=== PATIENT | female | born 1945 | race Caucasian/White ===

== ENCOUNTER → 2016-12-19 | Outpatient (CLI) | payer MEDICARE, BC | END | disposition home or self-care (01) | LOC: LABWHC1 09:54 | PROVIDERS: ATTEND Internal Medicine Endocrinology, Diabetes & Metabolism | DX: E03.8 Other specified hypothyroidism (principal) | CPT/HCPCS: 36415; 84443 ==

== ENCOUNTER → 2017-07-19 | Outpatient (CLI) | payer MEDICARE, BC ==
--- NOTE | 2017-07-19 15:42 | US ---
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 GLAND SIZE: Right Lobe: surgically removed Left Lobe: 3.4 x 1.1 x 1.4 cm Overall Parenchyma: heterogeneous Isthmus Thickness: 0.4 cm NODULES RIGHT: no discreet thyroid tissue is identified LEFT: # of nodules measured on left: 1 1. 0.6 X 0.6 x 0.4 cm isoechoic solid nodule at the lower pole with well-defined margins. This nodu le is wider than tall and shows no intranodular vascularity. Prior size: no prior here ISTHMUS: # of nodules measured in the isthmus: 0 Bilateral neck scanned, no evidence of lymphadenopathy. IMPRESSION: 1. Subcentimeter nodule left lobe thyroid 2. No recurrent masses right thyroid bed.
== END | disposition home or self-care (01) ==
LOC: RADUSWWP 14:59
PROVIDERS: ATTEND Internal Medicine Endocrinology, Diabetes & Metabolism
DX: E04.1 Nontoxic single thyroid nodule (principal); E03.8 Other specified hypothyroidism
CPT/HCPCS: 36415; 76536; 84443

== ENCOUNTER → 2017-11-19 | Outpatient (CLI) | payer MEDICARE, BC ==
--- NOTE | 2017-11-20 08:57 | MM ---
Reason for exam: screening (asymptomatic). Last mammogram was performed 1 year and 1 month ago. History: Patient is postmenopausal. Physical Findings: A clinical breast exam by your physician is recommended on an annual basis and results should be correlated with mammographic findings. MG 3D Screening Mammo W/Cad Bilateral CC and MLO view(s) were taken. Prior study comparison: October 12, 2016, bilateral MG 3d screening mammo w/cad. October 25, 2015, mammogram, performed at [facility]. The breast tissue is heterogeneously dense. This may lower the sensitivity of mammography. Finding: There are typically benign calcifications in both breasts. No significant changes in finding since October 12, 2016 and October 25, 2015. ASSESSMENT: Benign, BI-RAD 2 RECOMMENDATION: Routine screening mammogram of both breasts in 1 year.
== END | disposition home or self-care (01) ==
LOC: RADMAMWWP 13:25
PROVIDERS: ATTEND Internal Medicine Geriatric Medicine
DX: Z12.31 Encounter for screening mammogram for malignant neoplasm of breast (principal)
CPT/HCPCS: 77063; 77067

== ENCOUNTER → 2018-04-09 | Outpatient (CLI) | payer MEDICARE, BC | END | disposition home or self-care (01) | LOC: LABWHC1 12:02 | PROVIDERS: ATTEND Internal Medicine Endocrinology, Diabetes & Metabolism | DX: E03.8 Other specified hypothyroidism (principal) | CPT/HCPCS: 36415; 84443 ==

== ENCOUNTER → 2018-11-18 | Outpatient (CLI) | payer MEDICARE, BC ==
[2018-11-18 12:34] LABS: T4, Free (Free Thyroxine) 1.19 ng/dL (0.78-2.19)
--- NOTE | 2018-11-18 12:57 | US ---
EXAMINATION TYPE: US thyroid st tissue head/neck DATE OF EXAM: 11/18/2018 COMPARISON: US July 19, 2017. CLINICAL HISTORY: E04.2 GOITER. F/U previous GLAND SIZE: RT LOBE: Surgically absent Left Lobe: 3.3 x 1.2 x 1.0 cm Overall Parenchyma: heterogeneous Isthmus Thickness: 0.3 cm NODULES LEFT: # of nodules measured on left: 1 1. 0.6 X 0.6 x 0.5 cm isoechoic solid nodule at the lower pole with well-defined margins; This nod ule is wider than tall and shows intranodular vascularity. Prior size: 0.6 x 0.6 x 0.4 cm Bilateral neck scanned, no evidence of lymphadenopathy. Stable nodule left lobe/ Right thyroid bed ap peared wnl. No suspicious recurrent tissue right thyroid bed is present. Heterogeneous small sized left thyroid Is redemonstrated with stable 6 mm isoechoic solid nodule. IMPRESSION: Overall stable findings, no suspicious recurrent tissue or new thyroid nodularity.
== END | disposition home or self-care (01) ==
LOC: RADUSWWP 10:02
PROVIDERS: ATTEND Internal Medicine Endocrinology, Diabetes & Metabolism
DX: E04.2 Nontoxic multinodular goiter (principal)
CPT/HCPCS: 36415; 76536; 84439; 84443

== ENCOUNTER → 2018-11-26 | Outpatient (CLI) | payer MEDICARE, BC ==
--- NOTE | 2018-11-28 09:07 | MM ---
Reason for exam: screening (asymptomatic). Last mammogram was performed 1 year ago. History: Patient is postmenopausal. Physical Findings: A clinical breast exam by your physician is recommended on an annual basis and results should be correlated with mammographic findings. MG 3D Screening Mammo W/Cad Bilateral CC and MLO view(s) were taken. Prior study comparison: November 19, 2017, bilateral MG 3d screening mammo w/cad. October 12, 2016, bilateral MG 3d screening mammo w/cad. The breast tissue is heterogeneously dense. This may lower the sensitivity of mammography. No significant changes when compared with prior studies. ASSESSMENT: Benign, BI-RAD 2 RECOMMENDATION: Routine screening mammogram of both breasts in 1 year.
== END | disposition home or self-care (01) ==
LOC: RADMAMWWP 07:07
PROVIDERS: ATTEND Internal Medicine Geriatric Medicine
DX: Z12.31 Encounter for screening mammogram for malignant neoplasm of breast (principal)
CPT/HCPCS: 77063; 77067

== ENCOUNTER → 2019-10-06 | Outpatient (CLI) | payer MEDICARE, BC ==
[2019-10-06 14:35] LABS: Calcium 9.6 mg/dL (8.4-10.2); Potassium 4.3 mmol/L (3.5-5.1)
--- NOTE | 2019-10-07 16:20 | CT ---
EXAMINATION TYPE: CT urogram wo/w con DATE OF EXAM: 10/06/2019 HISTORY: Frequent urination and incontinence. CT DLP: 2818mGycm Automated Exposure Control for Dose Reduction was Utilized. CONTRAST: CT scan of the abdomen and pelvis is performed without and with IV Contrast, patient injected with 80 ml mL of Isovue 300. COMPARISON: None. FINDINGS: LUNG BASES: Benign granulomatous changes of the lungs and rhona. Subsegmental atelectasis and cardiome oneil are also seen. LIVER/GB: Mild degree hepatic steatosis limiting evaluation for hepatic masses. No discrete hepatic m asses seen nor intrahepatic biliary ductal dilatation. No cholelithiasis PANCREAS: No significant abnormality is seen. SPLEEN: No significant abnormality is seen. ADRENALS: There is a solid 7 mm right adrenal gland nodule that does not demonstrate characteristics of a benign adenoma. Precontrast Hounsfield unit 38 and relative washout of 25% as well as absolute w ashout of 48%. Left adrenal gland is unremarkable. KIDNEYS: Unenhanced images demonstrate no evidence of nephrolithiasis. There are bilateral sub-4 mm c ortical renal lesions that are too small to accurately characterize. No additional suspicious mass. N o hydronephrosis of either kidney. No uroepithelial thickening. Patchy opacification of the right ure ter. Opacification is improved on coronal delayed images. Left ureter is well opacified with ureteral jet seen. No discrete urinary bladder wall thickening is identified. BOWEL: No dilated large or small bowel. LYMPH NODES: No greater than 1cm abdominal or pelvic lymph nodes are appreciated. OSSEOUS STRUCTURES: Moderate arthropathy of the right femoral acetabular joint and mild of the left. Diffuse osseous demineralization is seen as well as moderate degenerative changes of the spine and le voscoliosis of the lumbar spine. OTHER: There is tortuosity of the abdominal aorta secondary to scoliosis. Mild atheromatous changes o f the abdominal aorta and its branches. IMPRESSION: 1. Indeterminant solid 7 mm right adrenal gland nodule that does not fit criteria for a benign adenom a. Given the small size percutaneous biopsy may be difficult. Considerations could be given to PET CT or short-term follow-up CT in 6 months. 2. No suspicious solid renal mass. There are bilateral sub-4 mm too small to accurately characterize lesions that could also be assessed at 6 months time. These are likely cysts.
== END | disposition home or self-care (01) ==
LOC: RADCTMAIN 13:48
PROVIDERS: ATTEND Urology
DX: E27.8 Other specified disorders of adrenal gland (principal)
CPT/HCPCS: 80048; 74178; 36415; 74400; Q9967

== ENCOUNTER → 2019-11-30 | Outpatient (CLI) | payer MEDICARE ==
--- NOTE | 2019-12-01 11:05 | MM ---
Reason for exam: screening (asymptomatic). Last mammogram was performed 1 year ago. History: Patient is postmenopausal and has history of other cancer at age 71. Benign excisional biopsy of the left breast, 1999. Physical Findings: A clinical breast exam by your physician is recommended on an annual basis and results should be correlated with mammographic findings. MG 3D Screening Mammo W/Cad Bilateral CC and MLO view(s) were taken. Prior study comparison: November 26, 2018, bilateral MG 3d screening mammo w/cad. November 19, 2017, bilateral MG 3d screening mammo w/cad. The breast tissue is heterogeneously dense. This may lower the sensitivity of mammography. There is no discrete abnormality. ASSESSMENT: Benign, BI-RAD 2 RECOMMENDATION: Routine screening mammogram of both breasts in 1 year.
== END | disposition home or self-care (01) ==
LOC: RADMAMWWP 09:54
PROVIDERS: ATTEND Internal Medicine Geriatric Medicine
DX: Z12.31 Encounter for screening mammogram for malignant neoplasm of breast (principal)
CPT/HCPCS: 77063; 77067

== ENCOUNTER → 2021-03-29 | Outpatient (CLI) | payer MEDICARE ==
--- NOTE | 2021-03-31 15:07 | MM ---
Reason for exam: screening (asymptomatic). Last mammogram was performed 1 year and 4 months ago. History: Patient is postmenopausal and has history of other cancer at age 71. Benign excisional biopsy of the left breast, 1999. Physical Findings: A clinical breast exam by your physician is recommended on an annual basis and results should be correlated with mammographic findings. MG 3D Screening Mammo W/Cad Bilateral CC and MLO view(s) were taken. Prior study comparison: November 30, 2019, bilateral MG 3d screening mammo w/cad. November 26, 2018, bilateral MG 3d screening mammo w/cad. The breast tissue is heterogeneously dense. This may lower the sensitivity of mammography. ASSESSMENT: Benign, BI-RAD 2 RECOMMENDATION: Routine screening mammogram of both breasts in 1 year.
== END | disposition home or self-care (01) ==
LOC: RADMAMWWP 14:32
PROVIDERS: ATTEND Internal Medicine Geriatric Medicine
DX: Z12.31 Encounter for screening mammogram for malignant neoplasm of breast (principal); Z98.890 Other specified postprocedural states
CPT/HCPCS: 77063; 77067

== ENCOUNTER → 2021-06-05 | Outpatient (CLI) | payer MEDICARE ==
--- NOTE | 2021-06-05 14:05 | BD ---
EXAMINATION TYPE: Axial Bone Density DATE OF EXAM: 06/05/2021 COMPARISON: 10/12/2016 CLINICAL HISTORY: Height: 65 IN Weight: 179 LBS RISK FACTORS HISTORY OF: Active: YES Diet low in dairy products/other sources of calcium: YES Postmenopausal woman: AGE 56 Take estrogen and/or progesterone medications: NOT NOW How long: TOOK FOR 1 YEAR MEDICATIONS: Thyroid Medications: YES Which medication: Levothyroxine How Lon + YEARS Additional Medications: VIT D, LEVOTHYROXINE, HIGH BLOOD PRESSURE MEDS, LEXAPRO, ZOCOR, Additional History: CERVICAL CANCER WITH RADIATION EXAM MEASUREMENTS: Bone mineral densitometry was performed using the [facility]. Bone mineral density as measured about the Lumbar spine is: ----- L1-L4(G/cm2): 1.145 T Score Values are as follows: ----- L2: -0.2 ----- L3: 0.6 ----- L4: -0.7 ----- L1-L4: -0.3 Bone mineral density has: Increased 0.3% since study of: 10/12/2016 Bone mineral density about the R hip (g/cm2): 1.030 Bone mineral density about the L hip (g/cm2): 1.010 T Score values are as follows: -----R Neck: -0.1 -----L Neck: -0.2 -----R Total: 0.5 -----L Total: 0.3 Bone mineral density has: Decreased -1.7% since study of: 10/12/2016 IMPRESSION: Normal (Values between +1 and -1 indicate normal bone mass). Consider repeating this study in 5 year s or sooner if there is some new clinical indication. NOTE: T-SCORE=SD OF THE YOUNG ADULT MEAN.
== END | disposition home or self-care (01) ==
LOC: RADBDWWP 08:08
PROVIDERS: ATTEND Internal Medicine Geriatric Medicine
DX: M81.0 Age-related osteoporosis without current pathological fracture (principal)
CPT/HCPCS: 77080

== ENCOUNTER → 2022-04-12 | Outpatient (CLI) | payer MEDICARE ==
--- NOTE | 2022-04-14 12:19 | MM ---
Reason for Exam: Screening (asymptomatic). Last screening mammogram was performed 12 month(s) ago. Patient History: Menarche at age 14. First Full-Term at age 23. Left ovary removed at age 71. Right ovary removed at age 71. Hysterectomy at age 71. Postmenopausal. Other cancer, age 71. 2000, Benign Excisional Biopsy on the left side. Risk Values: Sydney 5 year model risk: 2.1%. NCI Lifetime model risk: 3.7%. Prior Study Comparison: 11/26/2018 Bilateral Screening Mammogram, [facility]. 11/30/2019 Bilateral Screening Mammogram, [facility]. 03/29/2021 Bilateral Screening Mammogram, [facility]. Tissue Density: The breast tissue is heterogeneously dense. This may lower the sensitivity of mammography. Findings: Analyzed By CAD. There is no suspicious group of microcalcifications or new suspicious mass in either breast. Overall Assessment: Negative, BI-RAD 1 Management: Screening Mammogram of both breasts in 1 year. 1. Patient should continue monthly self breast exams. 2. A clinical breast exam by your physician is recommended on an annual basis and results should be correlated with mammographic findings. A negative mammogram should not preclude additional follow-up of suspicious palpable abnormalities. Electronically signed and approved by: Conrad Victoria M.D. Radiologist
== END | disposition home or self-care (01) ==
LOC: RADMAMWWP 13:37
PROVIDERS: ATTEND Internal Medicine Geriatric Medicine
DX: Z12.31 Encounter for screening mammogram for malignant neoplasm of breast (principal); R92.8 Other abnormal and inconclusive findings on diagnostic imaging of breast
CPT/HCPCS: 77063; 77067

== ENCOUNTER → 2022-07-18 | Outpatient (CLI) | payer MEDICARE ==
--- NOTE | 2022-07-19 08:02 | US ---
EXAMINATION TYPE: US carotid duplex BILAT DATE OF EXAM: 07/18/2022 COMPARISON: NONE CLINICAL HISTORY: 76-year-old female [id number] SYNCOPE AND COLLAPSE. Syncope and collapse. Hx hypertension, hyperlipidemia. TECHNIQUE: Carotid duplex ultrasound examination. Indirect Doppler criteria was utilized. FINDINGS: EXAM MEASUREMENTS: RIGHT: Peak Systolic Velocity (PSV) cm/sec ----- Right CCA: 46.9 ----- Right ICA: 79.0 ----- Right ECA: 48.6 ICA/CCA ratio: 1.7 RIGHT: End Diastole cm/sec ----- Right CCA: 5.8 ----- Right ICA: 20.6 ----- Right ECA: 0.0 LEFT: Peak Systolic Velocity (PSV) cm/sec ----- Left CCA: 50.7 ----- Left ICA: 61.6 ----- Left ECA: 51.5 ICA/CCA ratio: 1.2 LEFT: End Diastole cm/sec ----- Left CCA: 8.0 ----- Left ICA: 17.5 ----- Left ECA: 0.0 VERTEBRALS (direction of flow): Right Vertebral: Antegrade Left Vertebral: Antegrade Rhythm: Normal [employer] NOTES: Plaque seen within bilateral bulb area. No elevated velocities at this time. There appears to be loss of some end diastolic within bilateral CCA waveforms. IMPRESSION: 1. Mild atherosclerotic change of the bifurcations without hemodynamically significant internal carot id artery stenosis on either side. 2. Low values for end-diastolic velocities in the bilateral common carotid arteries. These are nonspe cific findings. Query any signs/symptoms of hypovolemia and correlate with cardiac exam to assess for any potential cardiac valve regurgitation. Criteria for Assigning % of Stenosis / Diameter reduction (Estimation based on the indirect measurements of the internal carotid artery velocities (ICA PSV). 1. Normal (no stenosis)=ICA PSV < 125 cm/s: ratio < 2.0: ICA EDV<40 cm/s. 2. Less than 50% stenosis=ICA PSV < 125 cm/s: ratio < 2.0: ICA EDV<40 cm/s. 3. 50 to 69% stenosis=ICA PSV of 125 to 230 cm/s: ration 2.0 ? 4.0: ICA EDV 40-100 cm/s. 4. Greater than 70% stenosis to near occlusion= ICA PSV > 230 cm/s: ratio > 4.0: ICA EDV > 100 cm/s. 5. Near occlusion= ICA PSV velocities may be low or undetectable: variable ratio and ICA EDV. 6. Total occlusion=unable to detect flow.
== END | disposition home or self-care (01) ==
LOC: RADUSWWP 14:55
PROVIDERS: ATTEND Internal Medicine Geriatric Medicine
DX: R55 Syncope and collapse (principal)
CPT/HCPCS: 93880

== ENCOUNTER → 2023-04-16 | Outpatient (CLI) | payer MEDICARE ==
--- NOTE | 2023-04-17 20:08 | MM ---
Reason for Exam: Screening (asymptomatic). Last screening mammogram was performed 12 month(s) ago. Patient History: Menarche at age 14. First Full-Term at age 23. Left ovary removed at age 71. Right ovary removed at age 71. Hysterectomy at age 71. Postmenopausal. Other cancer, age 71. 2000, Benign Excisional Biopsy on the left side. Risk Values: Sydney 5 year model risk: 2.0%. NCI Lifetime model risk: 3.4%. Prior Study Comparison: 11/30/2019 Bilateral Screening Mammogram, [facility]. 03/29/2021 Bilateral Screening Mammogram, [facility]. 04/12/2022 Bilateral MG 3D screening mammo w/cad, [facility]. Tissue Density: The breast tissue is heterogeneously dense. This may lower the sensitivity of mammography. Findings: Analyzed By CAD. Asymmetric density superior anterior right MLO view incompletely disperses on 3-D images and appears more defined. No clear correlate on the MLO view. This may represent superimposition shadow but further evaluation is recommended. Otherwise, no significant change. Overall Assessment: Incomplete: need additional imaging evaluation, BI-RAD 0 Management: Special View Mammogram of the right breast. Diagnostic Breast Ultrasound of the right breast. Additional spot 3-D MLO, 3-D CC rolled medial, and 3-D lateral views. Followed by ultrasound superior half of the right breast 9:00 to 3:00. [facility] will attempt to contact patient to return for supplemental views and ultrasound if indicated. Electronically signed and approved by: Conrad Victoria M.D. Radiologist
== END | disposition home or self-care (01) ==
LOC: RADMAMWWP 10:46
PROVIDERS: ATTEND Internal Medicine Geriatric Medicine
DX: Z12.31 Encounter for screening mammogram for malignant neoplasm of breast (principal); Z78.0 Asymptomatic menopausal state
CPT/HCPCS: 77063; 77067

== ENCOUNTER → 2023-04-23 | Outpatient (CLI) | payer MEDICARE ==
--- NOTE | 2023-04-23 14:04 | MM ---
Reason for Exam: Additional evaluation requested from abnormal screening. Last screening mammogram was performed less than 1 month ago. Patient History: Menarche at age 14. First Full-Term at age 23. Left ovary removed at age 71. Right ovary removed at age 71. Hysterectomy at age 71. Postmenopausal. Other cancer, age 71. 2000, Benign Excisional Biopsy on the left side. Risk Values: Sydney 5 year model risk: 2.0%. NCI Lifetime model risk: 3.4%. Tissue Density: Right: The breast tissue is heterogeneously dense. This may lower the sensitivity of mammography. Findings: Analyzed By CAD. Area of concern compresses out on spot compression imaging. No suspicious masses or calcifications visualized. Overall Assessment: Incomplete: need additional imaging evaluation, BI-RAD 0 Management: Diagnostic Breast Ultrasound of the right breast. Results were given to the patient verbally at the time of exam. Patient should continue monthly self-breast exams. A clinical breast exam by your physician is recommended on an annual basis. This exam should not preclude additional follow-up of suspicious palpable abnormalities. Note on Sydney scores and lifetime risk: 1. A Sydney score greater than 3% is considered moderate risk. If this is the case, consider specialist referral to assess eligibility for a risk reducing agent. 2. If overall lifetime risk for the development of breast cancer is 20% or higher, the patient may qualify for future screening with alternating mammogram and breast MRI. Electronically signed and approved by: Jeffry Heart DO
--- NOTE | 2023-04-23 14:20 | USB ---
Reason for Exam: Additional evaluation requested from abnormal screening. Patient History: Menarche at age 14. First Full-Term at age 23. Left ovary removed at age 71. Right ovary removed at age 71. Hysterectomy at age 71. Postmenopausal. Other cancer, age 71. 2000, Benign Excisional Biopsy on the left side. Risk Values: Sydney 5 year model risk: 2.0%. NCI Lifetime model risk: 3.4%. Technique: Method: Targeted. Patient Position: Supine. Prior Study Comparison: 03/29/2021 Bilateral Screening Mammogram, [facility]. 04/12/2022 Bilateral MG 3D screening mammo w/cad, [facility]. 04/16/2023 Bilateral MG 3D screening mammo w/cad, [facility]. Findings: The upper section of the breast of the right breast and the retroareolar of the right breast were scanned. Imaged: Ultrasound imaging of: Area of concern, retroareolar region and axilla. Prominent ducts are seen within the retroareolar region. No evidence for organizing fluid collection or mass. Overall Assessment: Benign, BI-RAD 2 Management: Screening Mammogram of both breasts in 1 year. A clinical breast exam by your physician is recommended on an annual basis and results should be correlated with mammographic findings. This exam should not preclude additional follow-up of suspicious palpable abnormalities. Results were given to the patient verbally at the time of exam. Electronically signed and approved by: Jeffry Heart DO
== END | disposition home or self-care (01) ==
LOC: RADMAMWWP 12:50
PROVIDERS: ATTEND Internal Medicine Geriatric Medicine
DX: R92.8 Other abnormal and inconclusive findings on diagnostic imaging of breast (principal); Z78.0 Asymptomatic menopausal state
CPT/HCPCS: 77065; 76642; G0279; 77061

== ENCOUNTER → 2024-05-19 | Outpatient (CLI) | payer MEDICARE ==
--- NOTE | 2024-05-21 09:56 | MM ---
Reason for Exam: Screening (asymptomatic). Last mammogram was performed 1 year(s) and 1 month(s) ago. Patient History: Menarche at age 14. First Full-Term at age 23. Left ovary removed at age 71. Right ovary removed at age 71. Hysterectomy at age 71. Postmenopausal. Other cancer, age 71. 2000, Benign Excisional Biopsy on the left side. Risk Values: Sydney 5 year model risk: 2.0%. NCI Lifetime model risk: 3.0%. Prior Study Comparison: 04/12/2022 Bilateral MG 3D screening mammo w/cad, [facility]. 04/16/2023 Bilateral MG 3D screening mammo w/cad, [facility]. 04/23/2023 Right MG 3D work up w/cad RT, [facility]. Tissue Density: The breasts are heterogeneously dense, which may obscure small masses. Findings: Analyzed By CAD. There is no suspicious group of microcalcifications or new suspicious mass in either breast. Overall Assessment: Benign, BI-RAD 2 Management: Screening Mammogram of both breasts in 1 year. . Patient should continue monthly self-breast exams. A clinical breast exam by your physician is recommended on an annual basis. This exam should not preclude additional follow-up of suspicious palpable abnormalities. Note on Sydney scores and lifetime risk: 1. A Sydney score greater than 3% is considered moderate risk. If this is the case, consider specialist referral to assess eligibility for a risk reducing agent. 2. If overall lifetime risk for the development of breast cancer is 20% or higher, the patient may qualify for future screening with alternating mammogram and breast MRI. Electronically signed and approved by: Mainor Wheat M.D. Radiologis
== END | disposition home or self-care (01) ==
LOC: RADMAMWWP 12:12
PROVIDERS: ATTEND Internal Medicine Geriatric Medicine
DX: Z12.31 Encounter for screening mammogram for malignant neoplasm of breast (principal); R92.333 Mammographic heterogeneous density, bilateral breasts; Z78.0 Asymptomatic menopausal state; Z90.721 Acquired absence of ovaries, unilateral
CPT/HCPCS: 77063; 77067